=== PATIENT | female | born 1990 | race Caucasian/White ===

== ENCOUNTER 2019-04-24 18:16 | Emergency (ER) | payer SELFPAY ==
--- NOTE | 2019-04-24 18:22 | PDOC ---
Rapid Medical Evaluation Chief Complaint: Chest Pain Time Seen by Provider: 04/24/19 18:19 Medical Evaluation: 04/24/19 18:20 I have performed a brief in-person evaluation of this patient. The patient presents with a chief complaint of: persistant cough / taking Zpack / mucinex Pertinent physical exam findings: moist cough/ pain with deep inspiration I have ordered the following: UCG The patient will proceed to the ED for further evaluation. Discharge Disposition - Diagnosis Pleuritic chest pain - Referrals Referrals: Sergio Maradiaga MD [Primary Care Provider] - - Patient Instructions - Post Discharge Activity
[2019-04-24 18:39] VITALS: BP 125/88; PULSE 67; TEMP 98.4; BMI 31.7
--- NOTE | 2019-04-24 19:33 | PDOC ---
History of Present Illness - General Chief Complaint: Respiratory Stated Complaint: CHEST PAIN Time Seen by Provider: 04/24/19 18:19 - History of Present Illness Initial Comments: 04/24/19 19:32 28-year-old female without comorbidities presents for evaluation of right-sided and left-sided rib pain. She states she's had a persistent cough for the last 2 weeks she is currently on a Z-Unruly and Mucinex but her chest pain process. She has central chest pain only left sided and right-sided rib pain. NO Systemic symptoms. Past History - Past Medical History Allergies/Adverse Reactions: Allergies Allergy/AdvReac Type Severity Reaction Status Date / Time No Known Allergies Allergy Verified 04/24/19 19:32 - Suicide/Smoking/Psychosocial Hx Smoking History: Unknown if ever smoked Hx Alcohol Use: No Drug/Substance Use Hx: No Review of Systems - Review of Systems Constitutional: No: Fever Respiratory: Yes: Cough Cardiac (ROS): Yes: See HPI, Chest Pain *Physical Exam - Vital Signs Last Vital Signs Temp Pulse Resp BP Pulse Ox 98.4 F 67 20 125/88 100 04/24/19 18:19 04/24/19 18:19 04/24/19 18:19 04/24/19 18:19 04/24/19 18:19 - Physical Exam Comments: 04/24/19 19:33 HEAD: NC/AT EYES: Conjuntiva clear Ears: Canals and TM's normal NOSE: No d/c THROAT: Moist mucous membrances, oral pharanx clear, uvula midline NECK: Supple without adenopathy CARDIAC: S1 S2 LUNGS: CTA Full and Equal breath sounds reproducible bilateral rib tenderness and about ribs 9 and 10 bilaterally ABDOMEN: Soft NT ND MS: Full ROM in all joints without edema NEUROLOGIC: No gross sensory or motor deficits, NVID SKIN: Normal color and temperature no lesions or rashes Medical Decision Making - Medical Decision Making 04/24/19 20:53 no fx, rib strain tylenol and motrin for pain f/u with PCP *DC/Admit/Observation/Transfer Diagnosis at time of Disposition: Pleuritic chest pain, Rib pain - Discharge Dispostion Disposition: HOME Condition at time of disposition: Stable Decision to Admit order: No - Referrals Referrals: Sergio Maradiaga MD [Primary Care Provider] - - Patient Instructions Additional Instructions: Tylenol and Motrin as directed for pain. Return to the emergency room for worsening symptoms. Continue the antibiotics and Mucinex as directed. Follow-up with her primary care physician in one to 2 days for further evaluation and treatment options. No fracture on x-rays today. - Post Discharge Activity
== END 2019-04-24 20:59 | disposition home or self-care (01) ==
LOC: JER 18:16 → JERFT 18:16
DX: R07.89 Other chest pain (principal)
CPT/HCPCS: 71046-TC-FY; 71111-TC-FY; 84703; 99281-25